=== PATIENT | male | born 1940 | race Caucasian/White ===

== ENCOUNTER → 2016-12-06 | Outpatient (CLI) | payer MEDICARE, OTHER ==
[2015-02-17 11:10] VITALS: BP 115/60
[~2016-12-06] MED LIST: ACET325T9 PO; AMLO10TA4 PO; AMOX500C PO; ASPI81TA2 PO; BUDE10.22 IH; CLOP75TA PO; DIAZEPAM10 MG PO; DOCU-27 PO; ENOXAPARIN SODIUM SUBCUT; FLUT1DIS3 INH; HYDR-2666 PO; INDO50CA PO; LEVO500T38 PO; METH4TAB2 PO; OLME40TA PO; PROC5TAB14 PO; VALIUM10 MG PO; ZOLP10TA PO; ZOLP10TA4 PO
--- NOTE | 2016-12-06 13:45 | KCIC ---
Examination: CT angiography abdomen HISTORY History of abdominal aortic aneurysm. COMPARISON None available. TECHNIQUE Axial CT angiographic images of the abdomen were performed with IV contrast. Coronal 3D, sagittal reformats were performed. Volumetric reformats of the aorta was performed. Findings : Partially visualized moderate cardiomegaly. The visualized bibasilar lungs grossly appears unremarkable.There is no evidence of free air identified in the abdomen. Moderate aortic atherosclerosis. The descending aorta in the chest measures 3.9 centimeters in transverse dimension and 4.5 centimeters in AP dimension just superior to the diaphragmatic hiatus. The visualized celiac artery, superior mesenteric artery demonstrate moderate atherosclerotic calcifications. The inferior mesenteric artery is patent. The infrarenal aorta measures 3.5 x 3.4 centimeter just above the bifurcation likely mild focal ectasia. There is moderate atherosclerotic calcification identified at the origin of the right and left renal arteries. The bilateral kidneys enhance symmetrically. There is a cystic structure identified in the midpole of the left kidney measuring 1 centimeter likely a cyst. There is a intrarenal collecting system calculus identified in the left kidney measuring 5.5 millimeters. Moderate aortic atherosclerosis identified in the bilateral common iliac arteries and visualized bilateral external and internal iliac arteries. The visualized liver, spleen, adrenal grossly appears unremarkable. The gallbladder is mildly distended. The visualized pancreas grossly appears unremarkable. Stomach is mildly distended. The visualized small bowel is nondilated. Small air-fluid level at identified at the junction of the 2nd and 3rd portions of the duodenum probably a small duodenal diverticulum. The appendix grossly appears unremarkable. Feces and gas noted in the colon. Few colonic diverticula identified partial in the sigmoid colon region. Moderate degenerative changes thoracolumbar spine. IMPRESSION - Mild focal ectasia of the infrarenal abdominal aorta just above the bifurcation with the aorta measures 3.5 x 3.4 centimeters. - Mild aneurysmal change distal descending thoracic aorta. Moderate aortic atherosclerosis. - 5.5 millimeter intrarenal collecting system calculus identified in the left kidney. - 1 centimeter left renal cyst. - Multiple colonic diverticula. Electronically signed by: Fidencio Craft (Dec 06, 2016 13:44:10)
== END | disposition home or self-care (01) ==
LOC: KCIC CT 08:37
PROVIDERS: ATTEND Internal Medicine
DX: I71.4 Abdominal aortic aneurysm, without rupture (principal)
CPT/HCPCS: 74175; 82565

== ENCOUNTER 2018-01-13 14:05 | Emergency (ER) | payer MEDICARE, OTHER ==
[2018-01-13 14:39] LABS: ADD MAN DIFF? NO
[2018-01-13 14:46] LABS: BASO # 0.1 x10^3/uL (0.0-0.2); BASO % 1 % (0-3); EOS # 0.4 x10^3/uL (0.0-0.7); EOS % 5 % (0-3); HEMATOCRIT 39.1 % (39.0-53.0); HEMOGLOBIN 13.3 g/dL (13.0-17.5); LYMPH # 1.6 x10^3/uL (1.0-4.8); LYMPH % 22 % (24-48); MEAN CORPUSCULAR HEMOGLOBIN 30 pg (25-35); MEAN CORPUSCULAR HGB CONC 34 g/dL (31-37); MEAN CORPUSCULAR VOLUME 87 fL (79-100); MONO # 0.7 x10^3/uL (0.0-1.1); MONO % 9 % (0-9); NEUT # 4.6 x10^3uL (1.8-7.7); NEUT % 63 % (31-73); PLATELET COUNT 166 x10^3/uL (140-400); RED BLOOD COUNT 4.47 x10^6/uL (4.30-5.70); RED CELL DISTRIBUTION WIDTH 15.6 % (11.5-14.5); WHITE BLOOD COUNT 7.4 x10^3/uL (4.0-11.0)
[2018-01-13 14:55] LABS: PARTIAL THROMBOPLASTIN TIME 29 SEC (24-38); PROTHROMBIN TIME PATIENT 12.6 SEC (11.7-14.0)
[2018-01-13 15:00] LABS: ANION GAP 4 (6-14); BLOOD UREA NITROGEN 16 mg/dL (8-26); BUN/CREATININE RATIO 18 (6-20); CALCIUM 9.3 mg/dL (8.5-10.1); CARBON DIOXIDE 33 mmol/L (21-32); CHLORIDE 103 mmol/L (98-107); CREATININE 0.9 mg/dL (0.7-1.3); GFR 82.3; GLUCOSE 104 mg/dL (70-99); POTASSIUM 3.8 mmol/L (3.5-5.1); SODIUM 140 mmol/L (136-145)
[2018-01-13 15:05] LABS: ALBUMIN 3.6 g/dL (3.4-5.0); ALBUMIN/GLOBULIN RATIO 1.1 (1.0-1.7); ALK PHOS 62 U/L (46-116); ALT (SGPT) 23 U/L (16-63); AST (SGOT) 12 U/L (15-37); TOTAL BILIRUBIN 0.3 mg/dL (0.2-1.0)
[2018-01-13 15:07] LABS: TROPONINI < 0.017 ng/mL (0.000-0.055)
== END 2018-01-13 16:50 | disposition home or self-care (01) ==
LOC: ER 16:50
DX: R41.82 Altered mental status, unspecified (principal); R53.1 Weakness; I48.91 Unspecified atrial fibrillation; I10 Essential (primary) hypertension; I25.2 Old myocardial infarction; Z86.73 Personal history of transient ischemic attack (TIA), and cerebral infarction without residual deficits; Z88.5 Allergy status to narcotic agent; Z88.6 Allergy status to analgesic agent; Z88.8 Allergy status to other drugs, medicaments and biological substances
CPT/HCPCS: 36415; 70450; 80053; 84484; 85025; 85610; 85730; 93005; 99285-25